=== PATIENT | female | born 1940 | race Caucasian/White ===

== ENCOUNTER 2021-11-08 08:00 | Outpatient (CLI) | payer MEDICARE, OTHER | END 2021-11-08 23:59 | disposition home or self-care (01) | LOC: LAB.S 08:00 | PROVIDERS: ATTEND Emergency Medicine | DX: R19.7 Diarrhea, unspecified (principal) | CPT/HCPCS: 81599; 87045; 87177; 87209; 87329; 87427; 87449; 87493 ==

== ENCOUNTER 2023-02-24 13:54 | Emergency (ER) | payer OTHER, MEDICARE, BC ==
[2023-02-24 14:02] VITALS: BP 121/62
--- NOTE | 2023-02-24 14:05 | ED Physician Documentation ---
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 It did draw blood mildly. It would be considered a provoked as she was working with the cat.) PD PAST MEDICAL HISTORY - Present Medications Home Medications: Ambulatory Orders Medication Instructions Recorded Confirmed Amox/Clav 875/125 [Augmentin] 1 each PO Q12H #10 tablet 02/24/23 - Allergies Allergies/Adverse Reactions: Allergies Allergy/AdvReac Type Severity Reaction Status Date / Time Sulfa (Sulfonamide Allergy Emesis Verified 02/24/23 14:01 Antibiotics) PD ED PE NORMAL - Vitals Vital signs reviewed: Yes - General General: Alert and oriented X 3, No acute distress, Well developed/nourished - Derm Derm: Normal color, Warm and dry - Extremities Extremities: Other (dorsum right hand over 2nd MC with 2 punctures without bleeding. No FB felt. Skin tender. No pain with ROM of the finger. ) - Neuro Neuro: No motor deficit, No sensory deficit Results - Vitals Vitals: Vital Signs - 24 hr 02/24/23 13:59 Temperature 36.6 C Heart Rate 73 Respiratory 16 Rate Blood Pressure 121/62 O2 Saturation 96 Oxygen O2 Source Room air PD Medical Decision Making - ED course Complexity details: considered differential (cat bite that she cleaned right away. mild bleeding. No pain on ROM of the finger, not apparently to tendon level. to give augmentin PO due to higher concern for infection from the mechanism. ), d/w patient Departure - Departure Disposition: Home, Self Care Clinical Impression: Cat bite of hand Qualifiers: Encounter type: initial encounter Laterality: left Qualified Code(s): S61.452A - Open bite of left hand, initial encounter Condition: Stable Record reviewed to determine appropriate education?: Yes Instructions: ED Bite Cat Prescriptions: Amox/Clav 875/125 [Augmentin] 1 each PO Q12H #10 tablet Comments: cleanse the wound soap and water 2-3 times daily, then apply ointment. Recheck if signs of infection. Augmentin twice daily for 5 days to reduce chance of infection. Tylenol is fine if needed for pains. Normal activity/use of hand is okay. Discharge Date/Time: 02/24/23 14:37
[2023-02-24] MEDS ORDERED: AMOX/CLAV 875 MG/125 MG TABLET PO STA (14:19)
== END 2023-02-24 14:37 | disposition home or self-care (01) ==
LOC: ED 13:54
DX: S61.452A Open bite of left hand, initial encounter (principal); W55.01XA Bitten by cat, initial encounter
CPT/HCPCS: 99282; 99283; A9270